=== PATIENT | female | born 1995 | race Caucasian/White ===

== ENCOUNTER 2017-02-19 05:51 | Emergency (ER) | payer SELFPAY ==
[2017-02-19 05:53] VITALS: BP 142/87; PULSE 91; RESP 20; TEMP 99; O2SAT 96
[2017-02-19] MEDS ORDERED: KETOROLAC TROMETHAMINE 60 MG/2 ML (IM) VIAL IM ONE (06:30)
[2017-02-19] MEDS ORDERED: ORPHENADRINE INJ 60 MG/2 ML AMP IM ONE (06:30)
[2017-02-19] MEDS ORDERED: IBUP800T23 PO (06:31)
[2017-02-19] MEDS ORDERED: BACL10TA PO (06:31)
--- NOTE | 2017-02-19 06:39 | PD ---
HPI Chief Complaint: Back/ Neck Pain or Injury Time Seen by Provider: 06:25 Travel History International Travel<30 days: No Contact w/Intl Traveler<30days: No Traveled to known affect area: No History of Present Illness HPI 22-year-old female presents for evaluation of right-sided neck pain. She woke up with pain in the right side of her neck this morning. The pain is a stiffening sensation which is constant, worse with movement of the neck. She denies any trauma. She denies any numbness, tingling, weakness. She has no other complaints at this time. [facility] Social History Alcohol Use: Yes (OCC) Tobacco Use: No Substance Use: Yes (SOMETIMES WEED) Allergies-Medications (Allergen,Severity, Reaction): Coded Allergies: No Known Allergies (Unverified , 08/24/15) Reported Meds & Prescriptions Reported Meds & Active Scripts Active Ibuprofen 800 Mg Tab 800 Mg PO Q6HR PRN Baclofen 10 Mg Tab 10 Mg PO Q8HR PRN 10 Days Review of Systems Except as stated in HPI: all other systems reviewed are Neg Physical Exam Narrative GENERAL: Well-developed well-nourished female in no acute distress SKIN: Warm and dry. No bruising or soft tissue swelling HEAD: Atraumatic. Normocephalic. EYES: Pupils equal and round. No scleral icterus. No injection or drainage. ENT: No nasal bleeding or discharge. Mucous membranes pink and moist. NECK: Trachea midline. No JVD. CARDIOVASCULAR: Regular rate and rhythm. No murmur appreciated. RESPIRATORY: No accessory muscle use. Clear to auscultation. Breath sounds equal bilaterally. GASTROINTESTINAL: Abdomen soft, non-tender, nondistended. Hepatic and splenic margins not palpable. MUSCULOSKELETAL: No obvious deformities. Tender to palpation right trapezius, right cervical paravertebral musculature region. Pain with range of motion. No tenderness to palpation along the cervical spine. NEUROLOGICAL: Awake and alert. No obvious cranial nerve deficits. Motor grossly within normal limits. Normal speech. Data Data Last Documented VS Vital Signs Date Time Temp Pulse Resp B/P Pulse Ox O2 Delivery O2 Flow Rate FiO2 02/19/17 05:53 99.0 91 20 142/87 96 Orders Ketorolac Inj (Toradol Inj) (02/19/17 06:30) Orphenadrine Inj (Norflex Inj) (02/19/17 06:30) MDM Medical Decision Making Medical Screen Exam Complete: Yes Emergency Medical Condition: Yes Medical Record Reviewed: Yes Differential Diagnosis Cervical strain, spasm, torticollis Narrative Course Examination is consistent with cervical strain. She is being discharged with a short course of NSAIDs and muscle relaxants. Diagnosis Primary Impression: Cervical strain Qualified Code: S16.1XXA - Strain of neck muscle, initial encounter Additional Instructions: Medications prescribed. Take ibuprofen with meals. Do not drive or drink alcohol when taking baclofen. Follow up with primary care physician. Return for any emergent medical conditions. Med/Other Pt SpecificInfo: Prescription(s) given Scripts Ibuprofen 800 Mg [id number] Mg PO Q6HR PRN (PAIN) #40 TAB Ref 0 Prov:Silviano Nuñez MD 02/19/17 Baclofen 10 Mg Tab10 Mg PO Q8HR PRN (MUSCLE SPASM) 10 Days Ref 0 Prov:Silviano Nuñez MD 02/19/17 Disposition: 01 DISCHARGE HOME Condition: Stable Pavan Bach Feb 19, 2017 06:38
[2017-02-19] MEDS ORDERED: MIREIUD I-UTERINE (06:49)
== END 2017-02-19 07:24 | disposition home or self-care (01) ==
LOC: NEPD 05:51
DX: S16.1XXA Strain of muscle, fascia and tendon at neck level, initial encounter (principal); X58.XXXA Exposure to other specified factors, initial encounter
CPT/HCPCS: 96372; 99284; J1885; J2360